=== PATIENT | male | born 1960 | race Caucasian/White ===

== ENCOUNTER 2017-03-18 12:14 | Inpatient (IN) | payer OTHER ==
[~2017-03-18] VITALS: Ht 175.3 cm; Wt 70.4 kg
[2017-03-18] VITALS (9 sets, daily range): BP systolic 127–164; BP diastolic 69–100
[2017-03-18 12:47] LABS: BASOPHILS # (AUTO) 0.1 10^3/uL (0.0-0.1); BASOPHILS % (AUTO) 1 % (0-10); EOSINOPHILS # (AUTO) 0.5 10^3/uL (0.0-0.3); EOSINOPHILS % (AUTO) 6 % (0-10); LYMPHOCYTES # (AUTO) 1.4 X 10^3 (1.0-4.0); LYMPHOCYTES % (AUTO) 18 % (12-44); MEAN CORPUSCULAR HEMOGLOBIN 30 PG (25-34); MEAN CORPUSCULAR HGB CONC 34 G/DL (32-36); MEAN CORPUSCULAR VOLUME 88 FL (80-99); MEAN PLATELET VOLUME 10.9 FL (7.4-10.4); MONOCYTES # (AUTO) 0.6 X 10^3 (0.0-1.0); MONOCYTES % (AUTO) 8 % (0-12); NEUTROPHILS # (AUTO) 5.3 X 10^3 (1.8-7.8); NEUTROPHILS % (AUTO) 68 % (42-75); PLATELET COUNT 253 10^3/uL (130-400); RED BLOOD COUNT 4.81 10^6/uL (4.35-5.85); RED CELL DISTRIBUTION WIDTH 13.1 % (10.0-14.5); WHITE BLOOD COUNT 7.8 10^3/uL (4.3-11.0)
--- NOTE | 2017-03-18 12:49 | Diagnostic Imaging Report ---
Portable upright radiograph of the chest. INDICATION: Chest pain. FINDINGS: The lungs are hyperinflated. There are prominent interstitial markings. The heart size is normal. No effusion or pneumothorax. Mediastinum and clarissa appear unremarkable. IMPRESSION: COPD. No focal infiltrate. Dictated by: Dictated on workstation # [id number]
[2017-03-18 13:05] LABS: ALANINE AMINOTRANSFERASE 8 U/L (0-55); ANION GAP 8 MMOL/L (5-14); ASPARTATE AMINO TRANSFERASE 18 U/L (5-34); BILIRUBIN,TOTAL 0.3 MG/DL (0.1-1.0); BLOOD UREA NITROGEN 14 MG/DL (7-18); BUN/CREATININE RATIO 12; CALCIUM 9.1 MG/DL (8.5-10.1); CARBON DIOXIDE 25 MMOL/L (21-32); CHLORIDE 107 MMOL/L (98-107); CREATININE SERUM 1.21 MG/DL (0.60-1.30); GFR ESTIMATED > 60; GLUCOSE 94 MG/DL (70-105); POTASSIUM 4.1 MMOL/L (3.6-5.0); SODIUM 140 MMOL/L (135-145); TOTAL PROTEIN 7.5 G/DL (6.4-8.2)
[2017-03-18 13:12] LABS: TROPONIN I 1.02 NG/ML (<0.30)
[2017-03-18] MEDS ORDERED: ASPIRIN 81 MG CHEW (CHILDREN'S ASA) PO ONE ×2 (13:15→13:30)
[2017-03-18] MEDS ORDERED: meTOprolol TARTRATE 25 MG (LOPRESSOR) TABLET PO ONE (13:15)
--- NOTE | 2017-03-18 13:29 | ED Chest Pain ---
General Chief Complaint: Chest Pain Stated Complaint: CHEST PAIN Nursing Triage Note: ARRIVED VIA AMB FROM DR RHOADES OFFICE. COMPLAINS OF CHEST PAIN ON AND OFF SINCE WEDNESDAY. STATES IT STARTED BACK UP AT 0200 TODAY WITH NO RELIEF. Nursing Sepsis Screen: No Definite Risk Source: patient Exam Limitations: no limitations History of Present Illness Time seen by provider: 13:15 Initial Comments The patient is a 56-year-old white male who was sent from Dr. Merino's office. He presented to the office with complaints of substernal chest pain radiating to each arm. He first had this pain on Wednesday. It had been fleeting but recurrent until early this morning. He was awakened at about 0200 hours with this pain and it has not really resolved. His risk factors are male sex, age greater than 50, hypertension, tobacco. He currently smokes about one half pack per day with a maximum daily of 1-1/2 packs. He has not had a cholesterol determination except at a work fair draw. He works for the [employer]. Timing/Duration: 4-5 days Severity/Quality: moderate, pressure Location: substernal Radiation: arms Activities at Onset: none Associated Symptoms: denies symptoms Allergies and Home Medications Allergies Coded Allergies: No Known Drug Allergies (Unverified , 03/18/17) Home Medications No Active Prescriptions or Reported Meds Review of Systems Constitutional: see HPI EENTM: No Symptoms Reported Respiratory: No Symptoms Reported Cardiovascular: See HPI, Chest Pain Gastrointestinal: No Symptoms Reported Genitourinary: No Symptoms Reported Musculoskeletal: no symptoms reported Skin: no symptoms reported Psychiatric/Neurological: No Symptoms Reported Endocrine: No Symptoms Reported Hematologic/Lymphatic: No Symptoms Reported Past Mhpoodz-Kxfrki-Jgrqat Hx Patient Social History Recent Foreign Travel: No Contact w/Someone Who Travel: No Recent Infectious Disease Expo: No Recent Hopitalizations: No Surgeries HX Surgeries: Yes (VASECTOMY) Respiratory Hx Respiratory Disorders: No Cardiovascular Hx Cardiac Disorders: No Neurological Hx Neurological Disorders: No Reproductive System Hx Reproductive Disorders: No Genitourinary Hx 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 ) Gastrointestinal Hx Gastrointestinal Disorders: No Musculoskeletal Hx Musculoskeletal Disorders: Yes (CHRONIC RIGHT HIP PAIN) HEENT HX ENT Disorders: No Cancer Hx Cancer: No Psychosocial Hx Psychiatric Problems: No Physical Exam Vital Signs Vital Sign - Last 12Hours 03/18/17 03/18/17 12:14 12:28 Temp 98.2 Pulse 61 Resp 16 B/P (MAP) 203/113 Pulse Ox 98 O2 Delivery Nasal Cannula O2 Flow Rate 2.00 Capillary Refill : Less Than 3 Seconds General Appearance: Mild Distress HEENT: Normal ENT Inspection Neck: Normal Inspection Respiratory: Chest Non Tender, Lungs Clear, Normal Breath Sounds, No Accessory Muscle Use, No Respiratory Distress Cardiovascular: Regular Rate, Rhythm, No Edema, No Gallop, No JVD, No Murmur, Normal Peripheral Pulses Gastrointestinal: Normal Bowel Sounds, No Organomegaly, No Pulsatile Mass, Non Tender Extremity: Normal Capillary Refill, Normal Inspection, Normal Range of Motion, Non Tender, No Calf Tenderness, No Pedal Edema Neurologic/Psychiatric: Alert, Oriented x3, No Motor/Sensory Deficits, Normal Mood/Affect Skin: Normal Color, Warm/Dry Lymphatic: No Adenopathy Progress/Results/Core Measures Results/Orders Lab Results Laboratory Tests Test 03/18/17 12:24 Range/Units White Blood Count 7.8 4.3-11.0 10^3/uL Red Blood Count 4.81 4.35-5.85 10^6/uL Hemoglobin 14.3 13.3-17.7 G/DL Hematocrit 42 40-54 % Mean Corpuscular Volume 88 80-99 FL Mean Corpuscular Hemoglobin 30 25-34 PG Mean Corpuscular Hemoglobin Concent 34 32-36 G/DL Red Cell Distribution Width 13.1 10.0-14.5 % Platelet Count 253 130-400 10^3/uL Mean Platelet Volume 10.9 H 7.4-10.4 FL Neutrophils (%) (Auto) 68 42-75 % Lymphocytes (%) (Auto) 18 12-44 % Monocytes (%) (Auto) 8 0-12 % Eosinophils (%) (Auto) 6 0-10 % Basophils (%) (Auto) 1 0-10 % Neutrophils # (Auto) 5.3 1.8-7.8 X 10^3 Lymphocytes # (Auto) 1.4 1.0-4.0 X 10^3 Monocytes # (Auto) 0.6 0.0-1.0 X 10^3 Eosinophils # (Auto) 0.5 H 0.0-0.3 10^3/uL Basophils # (Auto) 0.1 0.0-0.1 10^3/uL Sodium Level 140 135-145 MMOL/L Potassium Level 4.1 3.6-5.0 MMOL/L Chloride Level 107 98-107 MMOL/L Carbon Dioxide Level 25 21-32 MMOL/L Anion Gap 8 5-14 MMOL/L Blood Urea Nitrogen 14 7-18 MG/DL Creatinine 1.21 0.60-1.30 MG/DL Estimat Glomerular Filtration Rate > 60 BUN/Creatinine Ratio 12 Glucose Level 94 70-105 MG/DL Calcium Level 9.1 8.5-10.1 MG/DL Total Bilirubin 0.3 0.1-1.0 MG/DL Aspartate Amino Transf (AST/SGOT) 18 5-34 U/L Alanine Aminotransferase (ALT/SGPT) 8 0-55 U/L Alkaline Phosphatase 63 40-136 U/L Troponin I 1.02 *H <0.30 NG/ML Total Protein 7.5 6.4-8.2 G/DL Albumin 4.0 3.2-4.5 G/DL My Orders Orders - MARTIN VIDAL MD Ekg Tracing (03/18/17 12:20) O2 (03/18/17 12:20) Cbc With Automated Diff (03/18/17 12:20) Comprehensive Metabolic Panel (03/18/17 12:20) Troponin I (03/18/17 12:20) Chest 1 View, Ap/Pa Only (03/18/17 12:20) Aspirin Chewable Tablet (Baby Aspirin Ch (03/18/17 13:15) Metoprolol Tartrate (Ir) Tab (Lopressor (03/18/17 13:15) Aspirin Chewable Tablet (Baby Aspirin Ch (03/18/17 13:30) Nitroglycerin Sublingual (Nitrostat Sub (03/18/17 13:30) Vital Signs/I&O Vital Sign - Last 12Hours 03/18/17 03/18/17 12:14 12:28 Temp 98.2 Pulse 61 Resp 16 B/P (MAP) 203/113 Pulse Ox 98 O2 Delivery Nasal Cannula O2 Flow Rate 2.00 Blood Pressure Mean: 143 Departure Communication Progress Notes EKG was basically normal. The troponin returned positive at 1.02. He reported relief of pain. Discussed with EUSEBIO Calhoun who is cardiology call for the day. He recommended aspirin and beta blockers which had already been done. In addition he wanted me to give 300 mg of Plavix and therapeutic Lovenox. He anticipated angiography later today. Impression Impression: Primary Impression: myocardial infarction Disposition: ADMITTED INPATIENT Condition: Stable/Unchanged Decision to Admit Reason: Admit from ER (General) Decision to Admit/Date: Mar 18, 2017 Time/Decision to Admit Time: 13:29 Departure-Patient Inst. Referrals: MARCELLA MERINO DO (PCP/Family) Primary Care Physician Scripts No Active Prescriptions or Reported Meds MARTIN VIDAL MD Mar 18, 2017 13:29
[2017-03-18] MEDS ORDERED: NITROGLYCERIN SUBLINGUAL 0.4 MG TAB (NITROSTAT) SL ONE (13:30)
[2017-03-18] MEDS ORDERED: ENOXAPARIN 80 MG/0.8 ML (LOVENOX) SYR SC ONE (13:45)
[2017-03-18] MEDS ORDERED: CLOPIDOGREL 300 MG (PLAVIX) TABLET PO ONE ×2 (13:45→18:38)
[2017-03-18] MEDS ORDERED: CATHETER FLUSH 10 ML SYR IV PRN (14:45)
[2017-03-18] MEDS ORDERED: NITROGLYCERIN SUBLINGUAL 0.4 MG TAB (NITROSTAT) SL PRN (14:45)
[2017-03-18] MEDS ORDERED: MIDAZOLAM 5 MG/5 ML (VERSED) VIAL ONE (17:11)
[2017-03-18] MEDS ORDERED: fentaNYL INJECTION 100 MCG/2 ML AMP ONE (17:12)
[2017-03-18] MEDS ORDERED: diphenhydrAMINE 50 MG/ML INJ (BENADRYL) ONE (17:12)
[2017-03-18] MEDS ORDERED: NS IV 1000 ML 1,000 ML ONE (17:12)
[2017-03-18] MEDS ORDERED: HEParin (CATH LAB) 2,000 ML IV ONE (17:12)
[2017-03-18] MEDS ORDERED: LIDOCAINE 1% INJ 20 ML (XYLOCAINE) VIAL ONE (17:12)
--- NOTE | 2017-03-18 17:15 | History & Physicial ---
History of Present Illness History of Present Illness Reason for visit/HPI complaint chest pain. Patient came to the office today complaining of chest pain that started last Wednesday. Last night at 2 a.m. patient had chest pain that went down both arms more on the left and felt like a knife in his chest. Patient has a history of being a smoker. Patient transferred to emergency room and troponin elevated Date of Admission Mar 18, 2017 at 13:37 I consulted on this patient on 03/18/17 17:12 Attending Physician Jose M Merino DO Admitting Physician Jose M Merino DO Consult Allergies and Home Medications Allergies Coded Allergies: No Known Drug Allergies (Unverified , 03/18/17) Home Medications No Active Prescriptions or Reported Meds Past Ogyxksn-Nwibbo-Acfsxo Hx Patient Social History Marrital Status: Employed/Student: employed Alcohol Use: Denies Use Recreational Drug Use: No Smoking Status: Current Everyday Smoker Physical Abuse Screen: No Sexual Abuse: No Recent Foreign Travel: No Contact w/other who traveled: No Recent Hopitalizations: No Recent Infectious Disease Expo: No Seasonal Allergies Seasonal Allergies: No Surgeries HX Surgeries: Yes (VASECTOMY) Respiratory Hx Respiratory Disorders: No Cardiovascular Hx Cardiovascular Disorders: No Neurological Hx Neurological Disorders: No Reproductive System Hx Reproductive Disorders: No Genitourinary Hx 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 ) Gastrointestinal Hx Gastrointestinal Disorders: No Musculoskeletal Hx Musculoskeletal Disorders: Yes (CHRONIC RIGHT HIP PAIN) HEENT HX ENT Disorders: No Cancer Hx Cancer: No Psychosocial Hx Psychiatric Problems: No EENTM: no symptoms reported Respiratory: other (COPD) Cardiovascular: chest pain, other (pain radiating down both arms) Gastrointestinal: no symptoms reported Genitourinary: no symptoms reported Physical Exam Vital Signs Vital Sign - Last 12Hours 03/18/17 03/18/17 12:14 12:28 Temp 98.2 Pulse 61 Resp 16 B/P (MAP) 203/113 Pulse Ox 98 O2 Delivery Nasal Cannula O2 Flow Rate 2.00 Capillary Refill : Less Than 3 Seconds General Appearance: WD/WN, Thin Eyes: Bilateral Eye Normal Inspection HEENT: Normal ENT Inspection Neck: Full Range of Motion, Normal Inspection Respiratory: Chest Non Tender, Lungs Clear, No Accessory Muscle Use, No Respiratory Distress, Decreased Breath Sounds Cardiovascular: Regular Rate, Rhythm, No Murmur Gastrointestinal: Non Tender, Soft Assessment/Plan Assessment and Plan acute myocardial infarction. Chest pain Tobacco usage Problems: Clinical Quality Measures AMI/AHF: ASA po Prior to arrival: No DVT/VTE Risk/Contraindication: Risk Factor Score Per Nursin RFS Level Per Nursing on Admit: 4+=Very High JOSE M MERINO DO Mar 18, 2017 17:15
--- NOTE | 2017-03-18 17:33 | Consultation-Cardiology ---
HPI-Cardiology Cardiology Consultation: Date of Consultation 03/18/17 Date of Admission Attending Physician Jose M Perez DO Admitting Physician Jose M Perez DO Consulting Physician EUSEBIO BECK MD, FACP, FACC, FSCAI, CCDS HPI: Chief Complaint: Chest discomfort 56 yo man with 3 days of intermittent chest discomfort. Longest episode started this morning at 2 am and waxed and waned but not resolved. Is midsternal burning , mild to mod, sometimes radiating to L shoulder, sometimes associated with shortness of breath, without any aggravating or relieving factors. Has chronic mild to mod exertional shortness of breath. Denies palp or syncope. Denies leg swelling Review of Systems-Cardiology Review of Systems Constitutional: No lightheadedness, No malaise, No weight loss, No weight gain Eyes: No vision change Ears/Nose/Throat: No ear discharge, No nasal drainage, No recent hearing loss Respiratory: As described under HPI Cardiovascular: As described under HPI Gastrointestinal: No constipation, No diarrhea, No nausea Genitourinary: No dysuria, No hematuria, No urine frequency changes Musculoskeletal: No back pain, No joint pain Skin: No rash, No ulcerations Psychiatric/Neurological: No focal weakness, No seizure, No syncope Hematologic: No bleeding abnormalities IVW-Ttnlws-Zqghnp Hx Patient Social History Marrital Status: Employed/Student: employed Alcohol Use: Denies Use Recreational Drug Use: No Smoking Status: Current Everyday Smoker Recent Foreign Travel: No Recent Infectious Disease Expo: No Physical Abuse Screen: No Sexual Abuse: No Past Medical History PMH As described under Assessment. Family Medical History Family Medical History: He does not report fam h/o early CAD Allergies and Home Medications Allergies Coded Allergies: No Known Drug Allergies (Unverified , 03/18/17) Home Medications No Active Prescriptions or Reported Meds Physical Exam-Cardiology Physical Exam Vital Signs/I&O Vital Sign - Last 12Hours 03/18/17 03/18/17 03/18/17 03/18/17 12:14 12:28 14:13 14:20 Temp 98.2 97.2 Pulse 61 64 52 Resp 16 18 18 B/P (MAP) 203/113 163/100 Pulse Ox 98 96 10 O2 Delivery Nasal Cannula Nasal Cannula O2 Flow Rate 2.00 2.00 2.00 4/2003/18/17 03/18/17 03/18/17 14:33 14:40 15:00 16:00 Pulse 51 56 52 Resp 14 14 B/P (MAP) 164/86 151/95 Pulse Ox 100 96 99 O2 Delivery Nasal Cannula Nasal Cannula O2 Flow Rate 2.00 2.00 2.00 03/18/17 16:08 Pulse Ox 99 O2 Delivery Nasal Cannula O2 Flow Rate 2.00 Capillary Refill : Less Than 3 Seconds Constitutional: AAO x 3, well-developed, well-nourished HEENT: PERRL, EOMI, hearing is well preserved, No xanthelasmas are seen Neck: No carotid bruit, carotid pulses are 2 + bilaterally, with good upstrokes Respiratory: No accessory muscle use, lungs clear to percussion, lungs clear to auscultation Cardiovascular: regular rate-rhythm, S1 and S2, systolic murmur (faint TRUONG at card base) Gastrointestinal: No tender, soft, No guarding, No rebound, audible bowel sounds Extremities: No clubbing, No cyanosis, No significant edema Neurologic/Psychiatric: grossly intact, power is 5/5 both on sides Skin: No rash on exposed areas, No ulcerations on exposed areas Data Review Labs Laboratory Tests 03/18/17 12:24: White Blood Count 7.8, Red Blood Count 4.81, Hemoglobin 14.3, Hematocrit 42, Mean Corpuscular Volume 88, Mean Corpuscular Hemoglobin 30, Mean Corpuscular Hemoglobin Concent 34, Red Cell Distribution Width 13.1, Platelet Count 253, Mean Platelet Volume 10.9H, Neutrophils (%) (Auto) 68, Lymphocytes (%) (Auto) 18 , Monocytes (%) (Auto) 8, Eosinophils (%) (Auto) 6, Basophils (%) (Auto) 1, Neutrophils # (Auto) 5.3, Lymphocytes # (Auto) 1.4, Monocytes # (Auto) 0.6, Eosinophils # (Auto) 0.5H, Basophils # (Auto) 0.1, Sodium Level 140, Potassium Level 4.1, Chloride Level 107, Carbon Dioxide Level 25, Anion Gap 8, Blood Urea Nitrogen 14, Creatinine 1.21, Estimat Glomerular Filtration Rate > 60, BUN/ Creatinine Ratio 12, Glucose Level 94, Calcium Level 9.1, Total Bilirubin 0.3, Aspartate Amino Transf (AST/SGOT) 18, Alanine Aminotransferase (ALT/SGPT) 8, Alkaline Phosphatase 63, Troponin I 1.02*H, Total Protein 7.5, Albumin 4.0 Laboratory Tests 03/18/17 12:24 A/P-Cardiology Assessment/Admission Diagnosis Ac NSTEMI Chronic tobacco use Hypertension Reports only one functional kidney. Does not report CKD, but has been told on previous work up that has only one kidney, according to him Discussion and Recomendations * Because of continuing symptoms post NSTEMI, we recommend card cath * The procedure, risks, benefits, potential complications, and alternatives of cath and possible PCI were discussed in detail and questions. Was informed that the risk of contrast nephropathy may be higher for him, given vague history of kidney issues (report only one kidney present, but doesn't why the other kidney is missing) * He understands all of the issues and provides informed consent Clinical Quality Measures AMI/AHF: ASA po Prior to arrival: No DVT/VTE Risk/Contraindication: Risk Factor Score Per Nursin RFS Level Per Nursing on Admit: 4+=Very High EUSEBIO BECK MD FACP FAC CCDS Mar 18, 2017 17:33
[2017-03-18] MEDS ORDERED: HEParin 1000 UNIT/ML (10ML VIAL) FOR BOLUS ONE (18:12)
[2017-03-18] MEDS ORDERED: EPTIFIBATIDE BOLUS 20 ML IV ONE (18:12)
[2017-03-18] MEDS ORDERED: NITROGLYCERIN DRIP 25 MG/D5W 250 ML IV ONE (18:14)
--- NOTE | 2017-03-18 19:18 | Cardiac Procedure Note-CS/ASA ---
Pre-Procedure Note Pre-Op Procedure Note H&P Reviewed The H&P was reviewed, patient examined and no changes noted. Date H&P Reviewed: Mar 18, 2017 Time H&P Reviewed: 17:45 Conscious Sedation Pre-Proced Time Reviewed: 17:45 ASA Class: 3 Airway Mallampati Classification: (nenana appropriate class) I. II. III, IV Lungs Heart ASA score ASA 1: a normal healthy patient ASA 2: a patient with a mild systemic disease (mid diabetes, controlled hypertension, obesity ASA 3: a patient with a severe systemic disease that limits activity (angina , COPD, prior Myocardial infarction) ASA 4: a patient with an incapacitating disease that is a constant threat to life (CHF, renal failure) ASA 5: a moribund patient not expected to survive 24 hrs. (ruptured aneurysm) ASA 6: a declared brain patient whose organs are being harvested. For emergent operations, add the letter E after the classification Grade 2 Sedation Plan: Analgesia, Amnesia, Plan communicated to team members, Discussed options with patient/fam, Discussed risks with patient/fam Note The patient is an appropriate candidate to undergo the planned procedure, sedation, and anesthesia. The patient immediately re-assessed prior to indication. EUSEBIO BECK MD FACP FAC CCDS Mar 18, 2017 19:18
[2017-03-18] MEDS ORDERED: ACETAMINOPHEN 325 MG TABLET/CAPLET (TYLENOL) PO PRN (19:30)
[2017-03-18] MEDS ORDERED: PATIENT MAY USE OWN MEDS, ALL PO SCH (19:30)
[2017-03-18] MEDS ORDERED: fentaNYL INJECTION 100 MCG/2 ML AMP IVP ONE (21:00)
[2017-03-18] MEDS ORDERED: ATORVASTATIN 40 MG (LIPITOR) TABLET PO SCH (21:00)
[2017-03-18] MEDS ORDERED: ATROPINE INJ 0.4 MG/ML SDV ONE (21:10)
[2017-03-18] MEDS: CATHETER FLUSH 10 ML SYR IV SCH (22:30)
[2017-03-19] VITALS (10 sets, daily range): BP systolic 107–149; BP diastolic 54–88
[2017-03-19] MEDS: NS IV 1000 ML 1,000 ML IV SCH ×2 (00:04→05:34)
--- NOTE | 2017-03-19 00:08 | CARDIAC CATHETERIZATION ---
DATE OF SERVICE: 03/18/2017 The patient is 56-year-old man who was admitted with acute non-ST elevation myocardial infarction. Due to continuing symptoms, urgent cardiac catheterization was carried out after having obtained an informed consent. PROCEDURE: He was brought to the cardiac catheterization laboratory in a fasting state. The right groin was prepared and draped in the usual sterile fashion. The 1% lidocaine was used for local anesthesia. Modified Seldinger technique was to advance a 6-Argentine sheath into the right femoral artery. Angiography of the right femoral artery was performed through the sheath. Subsequently, we used the 6-Argentine JL4 catheter for left coronary angiography and 6-Argentine JR4 catheter for right coronary angiography. We used 6-Argentine pigtail catheter for left heart catheterization and left ventricular angiography. The pigtail catheter was then pulled back to the ascending aorta and was then removed. PERCUTANEOUS INTERVENTION TO THE RIGHT CORONARY ARTERY: Following completion of the diagnostic procedure, we proceeded with percutaneous intervention to the right coronary artery, which was exhibiting up to 99% stenosis in its midportion. The distal flow in the right coronary artery prior to coronary intervention was TIMI1 flow. We gave 5000 units of intravenous heparin. We gave a double bolus of Integrilin. We used 6-Fench JR4 guide catheter with side holes to engage the right coronary artery. We advanced a ChoICE Floppy wire across the lesions in the mid right coronary artery and the tip was placed in the distal vessel. We carried out balloon angioplasty, first with Emerge 1.5 x 20 mm balloon and then Emerge 2.0 x 30 mm balloon. This improved the stenosis from 99% to approximately 78%. This restored normal antegrade flow. We then proceeded with stenting of the right coronary artery. We used a Resolute 2.25 x 30 mm stent. This is carefully positioned to cover the entire lesion. The stent was deployed at 10 atmospheres. The balloon was then collapsed and pulled back into the proximal two-third of the stent and reinflated at 16 atmospheres. The balloon was then removed. Subsequent angiography revealed 0% residual stenosis at the previous site of up to 99% stenosis. Antegrade flow was normal. Angioplasty equipment was removed. Sheath was sutured in place to be removed later at the floor. The patient tolerated the procedure well. HEMODYNAMICS: Left ventricular end-diastolic pressure was 18 mmHg. There was no significant pressure gradient on pullback across the aortic valve. Ascending aortic pressure was 164/89 with a mean of 113 mmHg. LEFT VENTRICULAR ANGIOGRAPHY: Left ventricular angiography was carried out in the right anterior oblique projection only. Left ventricular ejection fraction is approximately 60-65%. No distinct regional wall motion abnormalities seen. There does not appear to be significant mitral regurgitation. CORONARY ANGIOGRAPHY: Left main coronary artery is free of significant disease. Left anterior descending artery has 50% proximal stenosis. The mid and distal left anterior descending artery has multiple stenoses of up to approximately 50%. The first septal manager cable has 90% ostial stenosis. This is a small caliber vessel. The left circumflex artery has 60% stenosis in its midportion following the origin of the first obtuse marginal branch. The right coronary artery is dominant, but of a relatively small caliber and was exhibiting up to 99% stenosis in its midportion. To this, successful balloon angioplasty followed by stenting is carried out. Following deployment of Resolute 2.25 x 30 mm stent, there is no significant visible stenosis and the flow has improved from TIMI1 to TIMI3. CONCLUSIONS: 1. Coronary artery disease as detailed above. The culprit lesion was up to 99% stenosis in the mid right coronary artery to which successful stenting was carried out with a Resolute 2.25 x 30 mm stent, which reduced the stenosis to 0% residual. Elsewhere, there is moderate diffuse coronary artery disease. 2. Normal global left ventricular systolic function with an ejection fraction of 60 to 65%. 3. No significant mitral regurgitation. 4. Elevated left ventricular end diastolic pressure. DISCUSSION AND RECOMMENDATIONS: He has been advised to quit smoking immediately and completely. Aspirin and Plavix and beta blockers and statins are being added to the regimen. He remains hospitalized for observation following this procedure. Job ID: [id number] DocumentID: [id number] Dictated Date: 03/18/2017 19:02:26 Bow Tacker Date: 03/19/2017 00:07:40 Dictated By: EUSEBIO BECK MD, MA, FACP, FACC,
[2017-03-19 03:46] LABS: BASOPHILS # (AUTO) 0.1 10^3/uL (0.0-0.1); BASOPHILS % (AUTO) 1 % (0-10); EOSINOPHILS # (AUTO) 0.3 10^3/uL (0.0-0.3); EOSINOPHILS % (AUTO) 5 % (0-10); LYMPHOCYTES # (AUTO) 1.3 X 10^3 (1.0-4.0); LYMPHOCYTES % (AUTO) 19 % (12-44); MEAN CORPUSCULAR HEMOGLOBIN 30 PG (25-34); MEAN CORPUSCULAR HGB CONC 33 G/DL (32-36); MEAN CORPUSCULAR VOLUME 90 FL (80-99); MONOCYTES # (AUTO) 0.6 X 10^3 (0.0-1.0); MONOCYTES % (AUTO) 9 % (0-12); NEUTROPHILS # (AUTO) 4.8 X 10^3 (1.8-7.8); NEUTROPHILS % (AUTO) 67 % (42-75); PLATELET COUNT 188 10^3/uL (130-400); RED BLOOD COUNT 4.25 10^6/uL (4.35-5.85); RED CELL DISTRIBUTION WIDTH 13.1 % (10.0-14.5); WHITE BLOOD COUNT 7.1 10^3/uL (4.3-11.0)
[2017-03-19 04:18] LABS: ANION GAP 9 MMOL/L (5-14); BLOOD UREA NITROGEN 14 MG/DL (7-18); BUN/CREATININE RATIO 14; CALCIUM 8.4 MG/DL (8.5-10.1); CARBON DIOXIDE 22 MMOL/L (21-32); CHLORIDE 109 MMOL/L (98-107); CHOLESTEROL 140 MG/DL (< 200); CREATININE SERUM 0.97 MG/DL (0.60-1.30); DIRECT LDL 83 MG/DL (1-129); GFR ESTIMATED > 60; GLUCOSE 103 MG/DL (70-105); MAGNESIUM 1.8 MG/DL (1.8-2.4); PHOSPHORUS 3.2 MG/DL (2.3-4.7); POTASSIUM 3.9 MMOL/L (3.6-5.0); SODIUM 140 MMOL/L (135-145); TRIGLYCERIDES 113 MG/DL (<150); VLDL CHOLESTEROL 23 MG/DL (5-40)
[2017-03-19 04:38] LABS: THYROID STIMULATING HORMONE 1.16 UIU/ML (0.35-4.94)
[2017-03-19] MEDS: CATHETER FLUSH 10 ML SYR IV SCH (05:34)
[2017-03-19] MEDS ORDERED: POTASSIUM CL 10MEQ/50ML IVPB 50 ML IV SCH (06:00)
[2017-03-19] MEDS ORDERED: KCL 20 MEQ TAB (K-DUR) PO SCH (06:00)
[2017-03-19] MEDS ORDERED: MAGNESIUM 1 GM/100 ML IVPB 100 ML IV SCH (06:00)
--- NOTE | 2017-03-19 07:04 | Progress Note (SOAP) ---
Subjective Subjective/Events-last exam patient feeling better today. Patient has no chest pain. Acute NST [place]. Hypertension. Tobacco use. Objective Exam Vital Signs Date Time Temp Pulse Resp B/P (MAP) Pulse Ox O2 Delivery O2 Flow Rate FiO2 03/19/17 06:01 61 10 136/73 98 Nasal Cannula 2.00 03/19/17 05:06 57 13 129/79 99 Nasal Cannula 2.00 03/19/17 04:30 61 12 123/75 99 Nasal Cannula 2.00 03/19/17 04:00 100 2.00 03/19/17 03:30 60 15 107/57 99 Nasal Cannula 2.00 03/19/17 02:00 58 14 109/59 98 Nasal Cannula 2.00 03/19/17 01:28 72 03/19/17 01:00 77 10 122/61 100 Nasal Cannula 2.00 03/19/17 00:00 65 12 114/54 100 Nasal Cannula 2.00 03/19/17 00:00 100 2.00 03/19/17 00:00 99.1 70 18 122/69 98 Nasal Cannula 2.00 03/18/17 23:00 70 11 127/72 100 Nasal Cannula 2.00 03/18/17 22:31 65 03/18/17 22:00 67 13 137/69 100 Nasal Cannula 2.00 03/18/17 21:00 62 15 147/84 100 Nasal Cannula 2.00 03/18/17 20:59 100 2.00 03/18/17 20:27 98.2 63 18 146/87 100 Nasal Cannula 2.00 03/18/17 20:00 100 2.00 03/18/17 19:30 68 14 143/90 99 Nasal Cannula 2.00 03/18/17 17:00 52 16 164/93 99 Nasal Cannula 2.00 03/18/17 16:08 99 Nasal Cannula 2.00 03/18/17 16:00 52 14 151/95 99 Nasal Cannula 2.00 03/18/17 15:00 56 14 164/86 96 Nasal Cannula 2.00 03/18/17 14:40 100 2.00 03/18/17 14:33 51 03/18/17 14:20 97.2 52 18 163/100 10 Nasal Cannula 2.00 03/18/17 14:13 64 18 96 2.00 03/18/17 12:28 Nasal Cannula 2.00 03/18/17 12:14 98.2 61 16 203/113 98 I & O 03/19/17 07:00 Intake Total 200 ml Output Total 1050 ml Balance -850 ml Capillary Refill : Less Than 3 Seconds General Appearance: No Apparent Distress, WD/WN HEENT: Normal ENT Inspection Neck: Full Range of Motion, Normal Inspection Respiratory: Chest Non Tender, No Accessory Muscle Use, No Respiratory Distress , Decreased Breath Sounds Cardiovascular: No Murmur Gastrointestinal: non tender, soft Results Lab Laboratory Tests 03/18/17 12:24 03/19/17 03:10 Laboratory Tests 03/18/17 12:24: White Blood Count 7.8, Red Blood Count 4.81, Hemoglobin 14.3, Hematocrit 42, Mean Corpuscular Volume 88, Mean Corpuscular Hemoglobin 30, Mean Corpuscular Hemoglobin Concent 34, Red Cell Distribution Width 13.1, Platelet Count 253, Mean Platelet Volume 10.9H, Neutrophils (%) (Auto) 68, Lymphocytes (%) (Auto) 18 , Monocytes (%) (Auto) 8, Eosinophils (%) (Auto) 6, Basophils (%) (Auto) 1, Neutrophils # (Auto) 5.3, Lymphocytes # (Auto) 1.4, Monocytes # (Auto) 0.6, Eosinophils # (Auto) 0.5H, Basophils # (Auto) 0.1, Sodium Level 140, Potassium Level 4.1, Chloride Level 107, Carbon Dioxide Level 25, Anion Gap 8, Blood Urea Nitrogen 14, Creatinine 1.21, Estimat Glomerular Filtration Rate > 60, BUN/ Creatinine Ratio 12, Glucose Level 94, Calcium Level 9.1, Total Bilirubin 0.3, Aspartate Amino Transf (AST/SGOT) 18, Alanine Aminotransferase (ALT/SGPT) 8, Alkaline Phosphatase 63, Troponin I 1.02*H, Total Protein 7.5, Albumin 4.0 03/18/17 19:53: Activated Partial Thromboplast Time 135*H 03/19/17 03:10: White Blood Count 7.1, Red Blood Count 4.25L, Hemoglobin 12.6L, Hematocrit 38L, Mean Corpuscular Volume 90, Mean Corpuscular Hemoglobin 30, Mean Corpuscular Hemoglobin Concent 33, Red Cell Distribution Width 13.1, Platelet Count 188, Mean Platelet Volume 11.0H, Neutrophils (%) (Auto) 67, Lymphocytes (%) (Auto) 19 , Monocytes (%) (Auto) 9, Eosinophils (%) (Auto) 5, Basophils (%) (Auto) 1, Neutrophils # (Auto) 4.8, Lymphocytes # (Auto) 1.3, Monocytes # (Auto) 0.6, Eosinophils # (Auto) 0.3, Basophils # (Auto) 0.1, Sodium Level 140, Potassium Level 3.9, Chloride Level 109H, Carbon Dioxide Level 22, Anion Gap 9, Blood Urea Nitrogen 14, Creatinine 0.97, Estimat Glomerular Filtration Rate > 60, BUN/ Creatinine Ratio 14, Glucose Level 103, Calcium Level 8.4L, Phosphorus Level 3.2 , Magnesium Level 1.8, Triglycerides Level 113, Cholesterol Level 140, LDL Cholesterol Direct 83, VLDL Cholesterol 23, HDL Cholesterol 40, Thyroid Stimulating Hormone (TSH) 1.16 Assessment/Plan Assessment/Plan Assess & Plan/Chief Complaint patient feels better and wants to go home acute NST [place]. Tobaccoism area Hypertension. Clinical Quality Measures AMI/AHF: ASA po Prior to arrival: No DVT/VTE Risk/Contraindication: Risk Factor Score Per Nursin RFS Level Per Nursing on Admit: 4+=Very High MARCELLA MERINO DO Mar 19, 2017 07:04
--- NOTE | 2017-03-19 07:46 | Diagnostic Imaging Report ---
Portable upright radiograph of the chest. INDICATION: Dyspnea. FINDINGS: The lungs are hyperinflated. There is prominent interstitial markings similar to 03/18/2017 and has chronic appearance. No effusion or pneumothorax. The heart size is normal. IMPRESSION: COPD. Dictated by: Dictated on workstation # [id number]
--- NOTE | 2017-03-19 08:49 | Progress Note-Cardiology ---
Cardiology SOAP Progress Note Subjective: Sitting up in bed. Spouse at the bedside. No c/o CP, SOB, palpitations, syncope or near syncope. No c/o groin pain. Objective: I&O/Vital Signs Vital Sign - Last 12Hours 03/18/17 03/18/17 03/19/17 03/19/17 22:31 23:00 00:00 00:00 Temp 99.1 Pulse 65 70 70 Resp 11 18 B/P (MAP) 127/72 122/69 Pulse Ox 100 98 100 O2 Delivery Nasal Cannula Nasal Cannula O2 Flow Rate 2.00 2.00 2.00 03/19/17 03/19/17 03/19/17 03/19/17 00:00 01:00 01:28 02:00 Pulse 65 77 72 58 Resp 12 10 14 B/P (MAP) 114/54 122/61 109/59 Pulse Ox 100 100 98 O2 Delivery Nasal Cannula Nasal Cannula Nasal Cannula O2 Flow Rate 2.00 2.00 2.00 03/19/17 03/19/17 03/19/17 03/19/17 03:30 04:00 04:30 05:06 Pulse 60 61 57 Resp 15 12 13 B/P (MAP) 107/57 123/75 129/79 Pulse Ox 99 100 99 99 O2 Delivery Nasal Cannula Nasal Cannula Nasal Cannula O2 Flow Rate 2.00 2.00 2.00 2.00 03/19/17 03/19/17 03/19/17 03/19/17 06:01 07:00 08:00 08:00 Temp 99.1 Pulse 61 68 64 Resp 10 14 B/P (MAP) 136/73 135/80 Pulse Ox 98 98 98 O2 Delivery Nasal Cannula Room Air O2 Flow Rate 2.00 Intake and Output 03/19/17 00:00 Intake Total 0 ml Output Total 650 ml Balance -650 ml Weight (Pounds): 155 Weight (Ounces): 3.0 Weight (Calculated Kilograms): [id number] Side: right Groin site without hematoma: Yes Condition: DP/PT pulses palpable, extremity w/d/p Bruising: mild bruising Constitutional: AAO x 3, well-developed, well-nourished Respiratory: No accessory muscle use, lungs clear to percussion, lungs clear to auscultation Cardiovascular: regular rate-rhythm, S1 and S2, systolic murmur (faint TRUONG at card base) Gastrointestional: No tender, soft, No guarding, No rebound, audible bowel sounds Extremities: No clubbing, No cyanosis, No significant edema Neurologic/Psychiatric: grossly intact, power is 5/5 both on sides Skin: No rash on exposed areas, No ulcerations on exposed areas Results/Procedures: Labs Laboratory Tests 03/18/17 12:24: White Blood Count 7.8, Red Blood Count 4.81, Hemoglobin 14.3, Hematocrit 42, Mean Corpuscular Volume 88, Mean Corpuscular Hemoglobin 30, Mean Corpuscular Hemoglobin Concent 34, Red Cell Distribution Width 13.1, Platelet Count 253, Mean Platelet Volume 10.9H, Neutrophils (%) (Auto) 68, Lymphocytes (%) (Auto) 18 , Monocytes (%) (Auto) 8, Eosinophils (%) (Auto) 6, Basophils (%) (Auto) 1, Neutrophils # (Auto) 5.3, Lymphocytes # (Auto) 1.4, Monocytes # (Auto) 0.6, Eosinophils # (Auto) 0.5H, Basophils # (Auto) 0.1, Sodium Level 140, Potassium Level 4.1, Chloride Level 107, Carbon Dioxide Level 25, Anion Gap 8, Blood Urea Nitrogen 14, Creatinine 1.21, Estimat Glomerular Filtration Rate > 60, BUN/ Creatinine Ratio 12, Glucose Level 94, Calcium Level 9.1, Total Bilirubin 0.3, Aspartate Amino Transf (AST/SGOT) 18, Alanine Aminotransferase (ALT/SGPT) 8, Alkaline Phosphatase 63, Troponin I 1.02*H, Total Protein 7.5, Albumin 4.0 03/18/17 19:53: Activated Partial Thromboplast Time 135*H 03/19/17 03:10: White Blood Count 7.1, Red Blood Count 4.25L, Hemoglobin 12.6L, Hematocrit 38L, Mean Corpuscular Volume 90, Mean Corpuscular Hemoglobin 30, Mean Corpuscular Hemoglobin Concent 33, Red Cell Distribution Width 13.1, Platelet Count 188, Mean Platelet Volume 11.0H, Neutrophils (%) (Auto) 67, Lymphocytes (%) (Auto) 19 , Monocytes (%) (Auto) 9, Eosinophils (%) (Auto) 5, Basophils (%) (Auto) 1, Neutrophils # (Auto) 4.8, Lymphocytes # (Auto) 1.3, Monocytes # (Auto) 0.6, Eosinophils # (Auto) 0.3, Basophils # (Auto) 0.1, Sodium Level 140, Potassium Level 3.9, Chloride Level 109H, Carbon Dioxide Level 22, Anion Gap 9, Blood Urea Nitrogen 14, Creatinine 0.97, Estimat Glomerular Filtration Rate > 60, BUN/ Creatinine Ratio 14, Glucose Level 103, Calcium Level 8.4L, Phosphorus Level 3.2 , Magnesium Level 1.8, Triglycerides Level 113, Cholesterol Level 140, LDL Cholesterol Direct 83, VLDL Cholesterol 23, HDL Cholesterol 40, Thyroid Stimulating Hormone (TSH) 1.16 Procedures S/P cardiac cath with successful intervention. Please refer to Dr. Pompa's cardiac cath report of 03-18-17 A/P: Assessment: Ac NSTEMI Coronary artery disease as detailed above. The culprit lesion was up to 99% stenosis in the mid right coronary artery to which successful stenting was carried out with a Resolute 2.25 x 30 mm stent, which reduced the stenosis to 0 % residual. Elsewhere, there is moderate diffuse coronary artery disease. Normal global left ventricular systolic function with an ejection fraction of 60 to 65%. No significant mitral regurgitation. Elevated left ventricular end diastolic pressure. Per cardiac cath of 03-18-17 Chronic tobacco use - cessation advised Hypertension Reports only one functional kidney. Does not report CKD, but has been told on previous work up that has only one kidney, according to him Plan: * S/P cardiac cath with successful intervention on 03-18-17 * Continue current medication regimen including ASA, Plavix, statin, and BB * Discussed importance of compliance with medications * Immediate and complete smoking cessation advised * OK to discharge home today * Out patient f/u in a week Physician Assessment Physician Assessment Lungs: good bilat air enty Cor: reg R groin w/o hematoma or inflammation A&R * As documented in our note above * I had a detailed discussion with him and his regarding cath findings, interventions undertaken, rationale of all meds, importance of med compliance and outpatient f/u * I advised immediate and complete smoking cessation * I advised and discussed risk factor modification Clinical Quality Measures AMI/AHF: ASA po Prior to arrival: APARNA Lloyd [employer] DIRECTOR Mar 19, 2017 08:49 EUSEBIO POMPA MD FACP FAC CCDS Mar 19, 2017 10:28
[2017-03-19] MEDS ORDERED: ASPIRIN E.C. 81 MG (ECOTRIN) TAB PO SCH (09:00)
[2017-03-19] MEDS ORDERED: CLOPIDOGREL 75 MG (PLAVIX) TABLET PO SCH (09:00)
[2017-03-19] MEDS ORDERED: ASPI-983 PO (09:01)
[2017-03-19] MEDS ORDERED: METO-270 PO (09:01)
[2017-03-19] MEDS ORDERED: ATOR40TA PO (09:01)
[2017-03-19] MEDS ORDERED: CLOP75TA28 PO (09:01)
--- NOTE | 2017-03-19 09:02 | Discharge Inst-Cardiology ---
Discharge Inst-Cardiac Discharge Medications New Medications: Aspirin (Aspirin EC) 81 Mg Tablet.dr 81 MG PO DAILY, #100 TAB 5 Refills Atorvastatin Calcium (Lipitor) 40 Mg Tablet 40 MG PO HS, #30 TAB 5 Refills Clopidogrel Bisulfate (Clopidogrel) 75 Mg Tablet 75 MG PO DAILY, #30 TAB 5 Refills Metoprolol Succinate (Metoprolol Succinate) 25 Mg Tab.er.24h 25 MG PO DAILY, #30 TAB 5 Refills New, Converted or Re-Newed RX: Transmitted to Pharmacy Patient Instructions Patient Instructions: Follow up appt to see Dr. Pompa in a week APARNA LUCAS Mar 19, 2017 09:02
--- NOTE | 2017-03-22 07:25 | ECHOCARDIOGRAPHY REPORT ---
DATE OF SERVICE: 03/19/2017 DATE OF SERVICE: 03/19/2017. PROCEDURE: Echocardiogram. ORDERING PHYSICIAN: Dr. Pompa. PRIMARY CARE PHYSICIAN: Dr. Perez. CLINICAL DIAGNOSIS: Acute myocardial infarction. MEASUREMENTS: Left atrium 2.8. Aortic root 3.3. LV diameter diastolic 4.1. IVF thickness, diastolic, 0.8. LVPW thickness, diastolic, 0.9. DESCRIPTION: Two-dimensional echocardiography shows well-preserved global left ventricular systolic function. No distinct regional wall motion abnormality obtained. Aortic, mitral, and tricuspid valve leaflets show good leaflet excursion. Doppler imaging did not show any significant valvular stenosis. Trivial tricuspid regurgitation is seen. Pulmonary artery systolic pressure is estimated to be within normal limits. Mitral inflow is consistent with grade 1 diastolic dysfunction of the left ventricle. There is no evidence of any significant intracardiac shunt on this transthoracic echocardiographic study. Inferior vena cava appears to be of normal size and does exhibit inspiratory collapse. CONCLUSIONS: 1. Normal global left ventricular systolic function with ejection fraction of 50%. 2. Trivial tricuspid regurgitation. 3. No evidence of any significant valvular stenosis. 4. Mild diastolic dysfunction, left ventricle. 5. Pulmonary artery systolic pressure is estimated to be within normal limits. Job ID: [id number] DocumentID: [id number] Dictated Date: 03/21/2017 14:36:35 Manager Psychiatry Date: 03/21/2017 14:52:56 Dictated By: EUSEBIO POMPA MD, MA, FACP, FACC,
--- NOTE | 2017-03-23 07:18 | Discharge Summary ---
Diagnosis/Chief Complaint Date of Admission Mar 18, 2017 at 13:37 Date of Discharge Mar 19, 2017 at 10:40 Admission Diagnosis Admission Diagnosis acute myocardial infarction. Chest pain Tobacco usage Discharge Diagnosis coronary artery disease. Non-ST elevated AR. Essential hypertension. Nicotine dependence Reason Hospital Visit complaint chest pain. Patient came to the office today complaining of chest pain that started last Wednesday. Last night at 2 a.m. patient had chest pain that went down both arms more on the left and felt like a knife in his chest. Patient has a history of being a smoker. Patient transferred to emergency room and troponin elevated Discharge Summary Procedures cardiac catheter Consultations cardiology Discharge Physical Examination Allergies: Coded Allergies: No Known Drug Allergies (Unverified , 03/18/17) Vitals & I&Os Vital Signs Date Time Temp Pulse Resp B/P (MAP) Pulse Ox O2 Delivery O2 Flow Rate FiO2 03/19/17 10:40 03/19/17 09:00 58 10 97 Room Air 03/19/17 08:00 99.1 03/19/17 07:00 2.00 Hospital Course patient had cardiac catheter and did well Labs (last 24 hrs) Laboratory Tests 03/18/17 12:24: White Blood Count 7.8, Red Blood Count 4.81, Hemoglobin 14.3, Hematocrit 42, Mean Corpuscular Volume 88, Mean Corpuscular Hemoglobin 30, Mean Corpuscular Hemoglobin Concent 34, Red Cell Distribution Width 13.1, Platelet Count 253, Mean Platelet Volume 10.9H, Neutrophils (%) (Auto) 68, Lymphocytes (%) (Auto) 18 , Monocytes (%) (Auto) 8, Eosinophils (%) (Auto) 6, Basophils (%) (Auto) 1, Neutrophils # (Auto) 5.3, Lymphocytes # (Auto) 1.4, Monocytes # (Auto) 0.6, Eosinophils # (Auto) 0.5H, Basophils # (Auto) 0.1, Sodium Level 140, Potassium Level 4.1, Chloride Level 107, Carbon Dioxide Level 25, Anion Gap 8, Blood Urea Nitrogen 14, Creatinine 1.21, Estimat Glomerular Filtration Rate > 60, BUN/ Creatinine Ratio 12, Glucose Level 94, Calcium Level 9.1, Total Bilirubin 0.3, Aspartate Amino Transf (AST/SGOT) 18, Alanine Aminotransferase (ALT/SGPT) 8, Alkaline Phosphatase 63, Troponin I 1.02*H, Total Protein 7.5, Albumin 4.0 03/18/17 19:53: Activated Partial Thromboplast Time 135*H 03/19/17 03:10: White Blood Count 7.1, Red Blood Count 4.25L, Hemoglobin 12.6L, Hematocrit 38L, Mean Corpuscular Volume 90, Mean Corpuscular Hemoglobin 30, Mean Corpuscular Hemoglobin Concent 33, Red Cell Distribution Width 13.1, Platelet Count 188, Mean Platelet Volume 11.0H, Neutrophils (%) (Auto) 67, Lymphocytes (%) (Auto) 19 , Monocytes (%) (Auto) 9, Eosinophils (%) (Auto) 5, Basophils (%) (Auto) 1, Neutrophils # (Auto) 4.8, Lymphocytes # (Auto) 1.3, Monocytes # (Auto) 0.6, Eosinophils # (Auto) 0.3, Basophils # (Auto) 0.1, Sodium Level 140, Potassium Level 3.9, Chloride Level 109H, Carbon Dioxide Level 22, Anion Gap 9, Blood Urea Nitrogen 14, Creatinine 0.97, Estimat Glomerular Filtration Rate > 60, BUN/ Creatinine Ratio 14, Glucose Level 103, Calcium Level 8.4L, Phosphorus Level 3.2 , Magnesium Level 1.8, Triglycerides Level 113, Cholesterol Level 140, LDL Cholesterol Direct 83, VLDL Cholesterol 23, HDL Cholesterol 40, Thyroid Stimulating Hormone (TSH) 1.16 Laboratory Tests 03/18/17 12:24 03/19/17 03:10 Pending Labs Laboratory Tests 03/18/17 12:24: White Blood Count 7.8, Red Blood Count 4.81, Hemoglobin 14.3, Hematocrit 42, Mean Corpuscular Volume 88, Mean Corpuscular Hemoglobin 30, Mean Corpuscular Hemoglobin Concent 34, Red Cell Distribution Width 13.1, Platelet Count 253, Mean Platelet Volume 10.9, Neutrophils (%) (Auto) 68, Lymphocytes (%) (Auto) 18 , Monocytes (%) (Auto) 8, Eosinophils (%) (Auto) 6, Basophils (%) (Auto) 1, Neutrophils # (Auto) 5.3, Lymphocytes # (Auto) 1.4, Monocytes # (Auto) 0.6, Eosinophils # (Auto) 0.5, Basophils # (Auto) 0.1, Sodium Level 140, Potassium Level 4.1, Chloride Level 107, Carbon Dioxide Level 25, Anion Gap 8, Blood Urea Nitrogen 14, Creatinine 1.21, Estimat Glomerular Filtration Rate > 60, BUN/ Creatinine Ratio 12, Glucose Level 94, Calcium Level 9.1, Total Bilirubin 0.3, Aspartate Amino Transf (AST/SGOT) 18, Alanine Aminotransferase (ALT/SGPT) 8, Alkaline Phosphatase 63, Troponin I 1.02, Total Protein 7.5, Albumin 4.0 03/18/17 19:53: Activated Partial Thromboplast Time 135 03/19/17 03:10: White Blood Count 7.1, Red Blood Count 4.25, Hemoglobin 12.6, Hematocrit 38, Mean Corpuscular Volume 90, Mean Corpuscular Hemoglobin 30, Mean Corpuscular Hemoglobin Concent 33, Red Cell Distribution Width 13.1, Platelet Count 188, Mean Platelet Volume 11.0, Neutrophils (%) (Auto) 67, Lymphocytes (%) (Auto) 19 , Monocytes (%) (Auto) 9, Eosinophils (%) (Auto) 5, Basophils (%) (Auto) 1, Neutrophils # (Auto) 4.8, Lymphocytes # (Auto) 1.3, Monocytes # (Auto) 0.6, Eosinophils # (Auto) 0.3, Basophils # (Auto) 0.1, Sodium Level 140, Potassium Level 3.9, Chloride Level 109, Carbon Dioxide Level 22, Anion Gap 9, Blood Urea Nitrogen 14, Creatinine 0.97, Estimat Glomerular Filtration Rate > 60, BUN/ Creatinine Ratio 14, Glucose Level 103, Calcium Level 8.4, Phosphorus Level 3.2 , Magnesium Level 1.8, Triglycerides Level 113, Cholesterol Level 140, LDL Cholesterol Direct 83, VLDL Cholesterol 23, HDL Cholesterol 40, Thyroid Stimulating Hormone (TSH) 1.16 Discharge Home Medications: Active Scripts Active Aspirin EC (Aspirin) 81 Mg Tablet.dr 81 Mg PO DAILY Metoprolol Succinate 25 Mg Tab.er.24h 25 Mg PO DAILY Lipitor (Atorvastatin Calcium) 40 Mg Tablet 40 Mg PO HS Clopidogrel (Clopidogrel Bisulfate) 75 Mg Tablet 75 Mg PO DAILY Instructions to patient/family Please see electonic discharge instructions given to patient. Clinical Quality Measures AMI/AHF: ASA po Prior to arrival: No DVT/VTE Risk/Contraindication: Risk Factor Score Per Nursin RFS Level Per Nursing on Admit: 4+=Very High MARCELLA MERINO DO Mar 23, 2017 07:18
== END 2017-03-19 10:40 | disposition home or self-care (01) | DRG 247 ==
LOC: EDUNIT# 12:14 → ER 12:16 → ICU 13:37
PROVIDERS: ADMIT Internal Medicine Cardiovascular Disease; ATTEND Family Medicine
PROC: 027034Z Dilation of Coronary Artery, One Artery with Drug-eluting Intraluminal Device, Percutaneous Approach (ICD-10-PCS; principal; 2017-03-18)
PROC: B2151ZZ Fluoroscopy of Left Heart using Low Osmolar Contrast (ICD-10-PCS; 2017-03-18)
PROC: B2111ZZ Fluoroscopy of Multiple Coronary Arteries using Low Osmolar Contrast (ICD-10-PCS; 2017-03-18)
PROC: B41F1ZZ Fluoroscopy of Right Lower Extremity Arteries using Low Osmolar Contrast (ICD-10-PCS; 2017-03-18)
DX: I21.4 Non-ST elevation (NSTEMI) myocardial infarction (principal); I25.10 Atherosclerotic heart disease of native coronary artery without angina pectoris; I10 Essential (primary) hypertension; F17.210 Nicotine dependence, cigarettes, uncomplicated
CPT/HCPCS: 36415; 71010; 80048; 80053; 80061; 83735; 84100; 84443; 84484; 85025; 85730; 93005; 93306; 93458; 96372

== ENCOUNTER 2017-04-03 10:13 | Emergency (ER) | payer OTHER ==
[~2017-04-03] VITALS: Ht 175.3 cm; Wt 70.3 kg
[~2017-04-03 10:13] MED LIST: ASPI-983 PO; ATOR40TA PO; CLOP75TA28 PO; METO-270 PO
[2017-04-03] MEDS ORDERED: HYDR-757 PO (11:25)
[2017-04-03] MEDS ORDERED: AMOX500C2 PO (11:25)
--- NOTE | 2017-04-03 11:25 | ED EENT ---
History of Present Illness General Chief Complaint: Dental Problems/Pain Stated Complaint: R SIDE UPPER TOOTH PAIN Source: patient Exam Limitations: no limitations History of Present Illness Time seen by provider: 11:22 Initial Comments To ER with right sided upper dental pain for 2-3 days. He was recently here for coronary stent placement following an AR. Timing/Duration: abrupt Severity: moderate Location: mouth, dental Associated Symptoms: denies symptoms Allergies and Home Medications Allergies Coded Allergies: No Known Drug Allergies (Unverified , 03/18/17) Home Medications Aspirin 81 Mg Tablet.dr, 81 MG PO DAILY, #100 Ref 5 Prescribed by: APARNA LUCAS on 03/19/17900 Atorvastatin Calcium 40 Mg Tablet, 40 MG PO HS, #30 Ref 5 Prescribed by: APARNA LUCAS on 03/19/17 09 Clopidogrel Bisulfate 75 Mg Tablet, 75 MG PO DAILY, #30 Ref 5 Prescribed by: APARNA LUCAS on 03/19/17900 Metoprolol Succinate 25 Mg Tab.er.24h, 25 MG PO DAILY, #30 Ref 5 Prescribed by: APARNA LUCAS on 03/19/17900 Review of Systems Constitutional: see HPI Eyes: No Symptoms Reported Ears: No Symptoms Reported Nose: no symptoms reported Mouth: see HPI Throat: no symptoms reported Respiratory: no symptoms reported Cardiovascular: no symptoms reported, No chest pain Musculoskeletal: no symptoms reported Skin: no symptoms reported Past Mjvubbm-Fglbrl-Eyyysi Hx Patient Social History Recent Foreign Travel: No Contact w/Someone Who Travel: No Recent Hopitalizations: No Seasonal Allergies Seasonal Allergies: No Surgeries HX Surgeries: Yes (VASECTOMY) Respiratory Hx Respiratory Disorders: No Cardiovascular Hx Cardiac Disorders: No Neurological Hx Neurological Disorders: No Reproductive System Hx Reproductive Disorders: No Genitourinary Hx 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 ) Gastrointestinal Hx Gastrointestinal Disorders: No Musculoskeletal Hx Musculoskeletal Disorders: Yes (CHRONIC RIGHT HIP PAIN) HEENT HX ENT Disorders: No Cancer Hx Cancer: No Psychosocial Hx Psychiatric Problems: No Physical Exam General Appearance: WD/WN, no apparent distress Eyes: bilateral eye EOMI, bilateral eye PERRL, bilateral eye normal inspection Ears: bilateral ear TM normal, bilateral ear auricle normal, bilateral ear canal normal Nose: normal inspection, No active bleeding Mouth/Throat: dental tenderness, No mandibular swelling, No maxillary swelling Neck: non-tender, full range of motion, No lymphadenopathy (R), No lymphadenopathy (L) Cardiovascular: regular rate, rhythm, no murmur Respiratory: normal breath sounds, no respiratory distress, no accessory muscle use Neurologic/Psychiatric: alert, normal mood/affect, oriented x 3 Skin: normal color, warm/dry Hypertensive at 193/108. Heart rate 80. Departure Impression Impression: Primary Impression: Hypertension Additional Impression: Dental caries Disposition: HOME, SELF-CARE Condition: Stable Departure-Patient Inst. Decision time for Depature: 11:24 Referrals: MARCELLA MERINO DO (PCP) Primary Care Physician Patient Instructions: Dental Pain (DC) Add. Discharge Instructions: 1. Return to ER for any concerns 2. Antibiotics and pain medication as directed 3. See your doctor next week All discharge instructions reviewed with patient and/or family. Voiced understanding. Scripts Hydrocodone/Acetaminophen (Cypress 5-325 Tablet) 1 Each Tablet 1 EACH PO Q4H Y for PAIN-MODERATE TO SEVERE, #20 TAB Prov: PAGE DAILEY APRN 04/03/17 Amoxicillin (Amoxicillin) 500 Mg Capsule 500 MG PO TID, #21 CAP Prov: PAGE DAILEY APRN 04/03/17 Images Mouth/Nose 1 - Caries, Fracture Tooth, Tenderness PAGE DAILEY APRN April 03, 2017 11:25
[2017-04-03] MEDS ORDERED: meTOprolol TARTRATE 25 MG (LOPRESSOR) TABLET PO ONE (11:30)
[2017-04-03] MEDS ORDERED: meTOprolol TARTRATE 50 MG (LOPRESSOR) TAB PO ONE (11:30)
[2017-04-03 11:38] VITALS: BP 174/108
== END 2017-04-03 11:38 | disposition home or self-care (01) ==
LOC: EDUNIT# 10:13 → ER 10:16
DX: K02.9 Dental caries, unspecified (principal); I10 Essential (primary) hypertension; I25.2 Old myocardial infarction; Q60.0 Renal agenesis, unilateral; Z79.82 Long term (current) use of aspirin; Z79.02 Long term (current) use of antithrombotics/antiplatelets; Z79.899 Other long term (current) drug therapy; Z95.5 Presence of coronary angioplasty implant and graft
CPT/HCPCS: 99282

== ENCOUNTER → 2019-06-20 | Outpatient (CLI) | payer OTHER ==
[~2019-06-20] MED LIST changes: +AMOX500C2 PO; +HYDR-4226 PO; -METO-270 PO; +METO-387 PO
--- NOTE | 2019-06-20 16:17 | Diagnostic Imaging Report ---
PROCEDURE: MRI left upper extremity without contrast. TECHNIQUE: Multiplanar, multisequence [id number] MRI of the left upper extremity was accomplished. INDICATION: Left shoulder pain. COMPARISON: There are no prior studies available for comparison. FINDINGS: On the T2 fat-saturated coronal series, there is a small 2 x 6 mm area of increased signal within the substance of the mid portion of the rotator cuff. This may represent a small partial tear. The supraspinatus muscle itself is not retracted or bunched. There is mild hypertrophy of the acromioclavicular joint. This does produce slight narrowing of the outlet for the supraspinatus muscle. The biceps tendon and the subscapularis tendon are intact. There are several sublabral cysts. These are indirect signs of a labral tear, and the labrum itself does seem to be thinned centrally. There is no sign of a joint effusion. There is no abnormal signal arising from the osseous structures to suggest bone edema or a fracture. IMPRESSION: 1. The findings do suggest a very small partial tear of the mid portion of the rotator cuff. The supraspinatus muscle is not retracted or bunched, however. 2. There is mild hypertrophy of the acromioclavicular joint. This does result in slight narrowing of the outlet for the supraspinatus muscle. 3. The labrum is torn on a degenerative basis, and there are several sublabral cysts. 4. There is no acute bony abnormality noted. Dictated by: Dictated on workstation # [id number]
== END ==
LOC: RAD 14:51
PROVIDERS: ATTEND Family Medicine
DX: S43.402A Unspecified sprain of left shoulder joint, initial encounter (principal); M25.812 Other specified joint disorders, left shoulder
CPT/HCPCS: 73221

== ENCOUNTER → 2019-09-25 | Outpatient (CLI) | payer OTHER ==
--- NOTE | 2019-09-25 13:23 | Diagnostic Imaging Report ---
INDICATION: Right hip pain. TIME OF EXAM: 12:59 p.m. FINDINGS: Two views of the right hip are obtained. Femoroacetabular alignment is normal. There are severe osteoarthritic changes involving the right hip. Complete loss of the superior and medial joint space is noted. There is significant sclerosis and subchondral cyst formation at the articular surfaces of the femoral head and acetabulum. Marginal osteophyte formation is noted. There is some mild flattening of the superior femoral head. Femoral neck is intact. No fractures are seen. Right-sided rami are intact. IMPRESSION: Severe right hip joint degenerative changes. No acute fracture is detected. Dictated by: Dictated on workstation # [id number]
== END ==
LOC: RAD 12:32
PROVIDERS: ATTEND Family Medicine
DX: M16.11 Unilateral primary osteoarthritis, right hip (principal); M79.604 Pain in right leg
CPT/HCPCS: 73502

== ENCOUNTER → 2019-11-13 | Outpatient (CLI) | payer OTHER ==
[~2019-11-13] VITALS: Ht 175 cm; Wt 66.0 kg
[~2019-11-13] MED LIST changes: +CATHETER FLUSH 10 ML SYR IV PRN; +REGADENOSON 0.4 MG/5 ML SYR (LEXISCAN) IV ONE
[2019-11-13 12:05] VITALS: BP 156/93
--- NOTE | 2019-11-13 19:56 | STRESS TEST ---
DATE OF SERVICE: 11/13/2019 RESTING AND POST REGADENOSON TECHNETIUM-99M TETROFOSMIN SPECT CT IMAGING ORDERING PHYSICIAN: Linda Barboza APRN PRIMARY PHYSICIAN: Jose M Perez DO. OTHER PHYSICIAN: Dr. Pompa. CLINICAL DIAGNOSIS: Coronary artery disease. Baseline images were carried out after injection of 10.27 mCi of technetium-99m Tetrofosmin for stress imaging. The electrocardiogram showed sinus rhythm at baseline. It did not change significantly with regadenoson infusion. The patient tolerated the procedure well. The patient received 0.4 mg regadenoson and 28.9 mCi of technetium-99m Tetrofosmin for stress imaging. Review of images at rest and following stress does not indicate any significant perfusion defects consistent with significant myocardial ischemia or infarction. Gated images show normal global left ventricular systolic function with normal regional wall motion. Left ventricular ejection fraction is calculated to be 61%. Left ventricular end diastolic volume is 55 mL. TID is absent (1.08). CONCLUSIONS: 1. No evidence of any significant myocardial ischemia or infarction on this study. 2. Normal regional wall motion. 3. Normal global left ventricular systolic function with a calculated ejection fraction of 61%. Job ID: [id number] DocumentID: [id number] Dictated Date: 11/13/2019 17:31:34 Completion Manager Date: 11/13/2019 19:55:31 Dictated By: EUSEBIO POMPA MD, MA, FACP, FACC,
== END ==
LOC: CARD 09:08
PROVIDERS: ATTEND Nurse Practitioner Family
DX: I25.10 Atherosclerotic heart disease of native coronary artery without angina pectoris (principal)
CPT/HCPCS: 78452; 93017

== ENCOUNTER 2023-09-11 16:27 | Emergency (ER) | payer OTHER ==
[~2023-09-11] VITALS: Ht 175 cm; Wt 66.0 kg
[~2023-09-11 16:27] MED LIST changes: +ASPI-1238 PO; -ASPI-983 PO; -CATHETER FLUSH 10 ML SYR IV PRN; -METO-387 PO; +MTP25TSR PO; -REGADENOSON 0.4 MG/5 ML SYR (LEXISCAN) IV ONE
[2023-09-11 16:52] LABS: BASOPHILS # (AUTO) 0.1 10^3/uL (0.0-0.1); BASOPHILS % (AUTO) 1 % (0-10); EOSINOPHILS # (AUTO) 0.4 10^3/uL (0.0-0.3); EOSINOPHILS % (AUTO) 5 % (0-10); HEMATOCRIT 42 % (40-54); HEMOGLOBIN 14.4 g/dL (13.3-17.7); LYMPHOCYTES # (AUTO) 1.3 10^3/uL (1.0-4.0); LYMPHOCYTES % (AUTO) 18 % (12-44); MEAN CORPUSCULAR HEMOGLOBIN 30 pg (25-34); MEAN CORPUSCULAR HGB CONC 34 g/dL (32-36); MEAN CORPUSCULAR VOLUME 90 fL (80-99); MEAN PLATELET VOLUME 10.4 fL (9.0-12.2); MONOCYTES # (AUTO) 0.8 10^3/uL (0.0-1.0); MONOCYTES % (AUTO) 10 % (0-12); NEUTROPHILS # (AUTO) 4.9 10^3/uL (1.8-7.8); NEUTROPHILS % (AUTO) 66 % (42-75); PLATELET COUNT 220 10^3/uL (130-400); WHITE BLOOD COUNT 7.5 10^3/uL (4.3-11.0)
--- NOTE | 2023-09-11 16:56 | ED Neurological Problem ---
General Chief Complaint: Cardiac/General Problems Stated Complaint: SENT FROM [facility] FOR BLOOD PRES Nursing Triage Note: PT SENT FROM [facility] FOR HYPERTENSION, SWOLLEN TONGUE SINCE 10:00 THIS A.M. TROUBLE BREATHING. STENT FROM AMI BUT DOES NOT TAKE MEDS Source: patient Exam Limitations: no limitations History of Present Illness Date Seen by Provider: Sep 11, 2023 Time Seen by Provider: 16:31 Initial Comments 62-year-old male presents to the ER after being sent from [facility] for elevated blood pressure and difficulty speaking. He states that at 10 AM he started having trouble talking, feels like his tongue is swollen. Denies difficulty swallowing. His visitor reports the left side of his face appears slightly swollen. He denies any dental pain. Denies any numbness or tingling in his arms, denies weakness on one side of his body. He denies headache, dizziness, chest pain, blurry vision. He reports shortness of air, states this is chronic. He denies any change to his shortness of air. He is a smoker. He has had a previous SC with stent placement. He is supposed to be on Plavix and aspirin, but does not take these. He does not take any PEEWEE inhibitors. He is a smoker. Allergies and Home Medications Allergies Coded Allergies: No Known Drug Allergies (Unverified , 03/18/17) Patient Home Medication List Home Medication List Reviewed: Yes Albuterol Sulfate (Ventolin Hfa) 1 Puff Puff, 2 PUFF INH Q4H Prescribed by: Mckenna Dent on 09/11/231816 Amoxicillin (Amoxicillin) 500 Mg Capsule, 500 MG PO TID Prescribed by: PAEG DAILEY on 04/03/17 1125 Amoxicillin/Potassium Clav (Amox Tr-K Clv 875-125 mg Tab) 875 Mg-125 Mg Tablet, 1 EACH PO BID Prescribed by: Mckenna Dent on 09/11/231814 Aspirin (Aspirin EC) 81 Mg Tablet.dr, 81 MG PO DAILY Prescribed by: APARNA LUCAS on 03/19/17 09 Aspirin (Aspirin) 81 Mg Tab.chew, 81 MG PO DAILY Prescribed by: Mckenna Dent on 09/11/231814 Atorvastatin Calcium (Lipitor) 40 Mg Tablet, 40 MG PO HS Prescribed by: APARNA LUCAS on 03/19/17 09 Clopidogrel Bisulfate (Clopidogrel) 75 Mg Tablet, 75 MG PO DAILY Prescribed by: APARNA LUCAS on 03/19/17 09 Clopidogrel Bisulfate (Plavix) 75 Mg Tablet, 75 MG PO DAILY Prescribed by: Mckenna Dent on 09/11/231814 Hydrocodone/Acetaminophen (Hydrocodone/Acetaminophen 5 MG/325 MG TAB) 1 Each Tablet, 1 EACH PO Q4H PRN for PAIN-MODERATE TO SEVERE Prescribed by: PAGE DAILEY on 04/03/17 112 Lisinopril (Lisinopril) 10 Mg Tablet, 10 MG PO DAILY Prescribed by: Mckenna Dent on 09/11/231814 Methylprednisolone (Methylprednisolone Dose Pack) 4 Mg Tab.ds.pk, 4 MG PO UD Prescribed by: Mckenna Dent on 09/11/231814 Metoprolol Succinate (Metoprolol Succinate) 25 Mg Tab.er.24h, 25 MG PO DAILY Prescribed by: APARNA LUCAS on 03/19/17900 Review of Systems Review of Systems Constitutional: see HPI Past Buokshx-Ghogdw-Rjwcqo Hx Patient Social History Tobacco Use?: Yes Tobacco type used: Cigarettes Smoking Status: Current Everyday Smoker Substance use?: No Alcohol Use?: No Immunizations Up To Date First/Initial COVID19 Vaccinat: NO Seasonal Allergies Seasonal Allergies: No Past Medical History Surgery/Hospitalization HX: AMI WITH STENTS AND DOES NOT TAKE RX'D MEDS Surgeries: Yes (VASECTOMY) Respiratory: No Cardiac: No Heart Attack, Hypertension Neurological: No Reproductive Disorders: No Genitourinary: No Gastrointestinal: No Musculoskeletal: Yes (CHRONIC RIGHT HIP PAIN) Endocrine: No HEENT: No Cancer: No Psychosocial: No Integumentary: No Physical Exam Vital Signs Vital Signs - First Documented 09/11/23 16:32 Temp 36.6 Pulse 93 Resp 18 B/P (MAP) 207/125 (152) Pulse Ox 97 O2 Delivery Room Air Capillary Refill : Less Than 3 Seconds Height, Weight, BMI Height: 5'9.00" Weight: 155lbs. 3.0oz. [id number]; 21.00 BMI Method:Stated General Appearance: WD/WN, no apparent distress HEENT: PERRL/EOMI Neck: supple, normal inspection Respiratory: no respiratory distress, no accessory muscle use, wheezing (Expiratory throughout) Cardiovascular: regular rate, rhythm Extremities: normal range of motion, normal inspection Neurologic/Psychiatric: rose grower II-XII nml as tested, no motor/sensory deficits, alert, normal mood/affect, oriented x 3 Crainal Nerves: normal hearing, PERRL, abnormal speech (Slightly slurred speech) Coordination/Gait: normal finger to nose Motor/Sensory: no motor deficit, no sensory deficit Skin: normal color, warm/dry Stroke NIH Stroke Scale Assessment Select: Initial Level of Consciousness: 0=Alert (0), Level of Consciousness- Questions: 0=Answers both month/age (0), LOC Commands: 0=Performs both tasks (0), Gaze: Normal (0), Visual Paul: 0=No visual loss (0), Facial Movement (Facial Paresis): 0=Normal symmetrical mnt (0), Motor Function-Arms Right: 0=No drift (0), Motor Function-Arms Left: 0=No drift (0), Motor Function-Legs Right: 0=No drift (0), Motor Function-Legs Left: 0=No drift (0), Limb Ataxia: 0=Absent (0), Sensory: 0=Normal:no loss (0), Best Language: 0=No aphasia (0), Dysarthria: 1=Mild to moderate loss (1), Extinction & Inattention: 0=No abnormality (0), Total: 1 Progress/Results/Core Measures Results/Orders Lab Results Laboratory Tests Test 09/11/23 16:40 09/11/23 16:43 Range/Units White Blood Count 7.5 4.3-11.0 10^3/uL Red Blood Count 4.74 4.30-5.52 10^6/uL Hemoglobin 14.4 13.3-17.7 g/dL Hematocrit 42 40-54 % Mean Corpuscular Volume 90 80-99 fL Mean Corpuscular Hemoglobin 30 25-34 pg Mean Corpuscular Hemoglobin Concent 34 32-36 g/dL Red Cell Distribution Width 12.5 10.0-14.5 % Platelet Count 220 130-400 10^3/uL Mean Platelet Volume 10.4 9.0-12.2 fL Immature Granulocyte % (Auto) 0 % Neutrophils (%) (Auto) 66 42-75 % Lymphocytes (%) (Auto) 18 12-44 % Monocytes (%) (Auto) 10 0-12 % Eosinophils (%) (Auto) 5 0-10 % Basophils (%) (Auto) 1 0-10 % Neutrophils # (Auto) 4.9 1.8-7.8 10^3/uL Lymphocytes # (Auto) 1.3 1.0-4.0 10^3/uL Monocytes # (Auto) 0.8 0.0-1.0 10^3/uL Eosinophils # (Auto) 0.4 H 0.0-0.3 10^3/uL Basophils # (Auto) 0.1 0.0-0.1 10^3/uL Immature Granulocyte # (Auto) 0.0 0.0-0.1 10^3/uL Prothrombin Time 12.6 12.2-14.7 SEC INR Comment 0.9 0.8-1.4 Activated Partial Thromboplast Time 28 24-35 SEC D-Dimer 0.76 H 0.00-0.49 UG/ML Sodium Level 139 135-145 MMOL/L Potassium Level 3.9 3.6-5.0 MMOL/L Chloride Level 106 98-107 MMOL/L Carbon Dioxide Level 22 21-32 MMOL/L Anion Gap 11 5-14 MMOL/L Blood Urea Nitrogen 15 7-18 MG/DL Creatinine 1.32 H 0.60-1.30 MG/DL Estimat Glomerular Filtration Rate 60 BUN/Creatinine Ratio 11 Glucose Level 95 70-105 MG/DL Calcium Level 9.4 8.5-10.1 MG/DL Corrected Calcium 9.3 8.5-10.1 MG/DL Total Bilirubin 0.3 0.1-1.0 MG/DL Aspartate Amino Transf (AST/SGOT) 15 5-34 U/L Alanine Aminotransferase (ALT/SGPT) 10 0-55 U/L Alkaline Phosphatase 65 40-136 U/L Troponin I < 0.028 <0.028 NG/ML Total Protein 8.0 6.4-8.2 GM/DL Albumin 4.1 3.2-4.5 GM/DL Glucometer 99 70-110 MG/DL My Orders Orders - MCKENNA SMITH [employer] BU[employer] Cbc And Automated Diff (09/11/23 16:44) Protime With Inr (09/11/23 16:44) Partial Thromboplastin Time (09/11/23 16:44) Comprehensive Metabolic Panel (09/11/23 16:44) Fibrin Degradation Products (09/11/23 16:44) Troponin I Ricki (09/11/23 16:44) Chest 1 View, Ap/Pa Only (09/11/23 16:44) Ekg Tracing (09/11/23 16:44) Accucheck Stat ONCE (09/11/23 16:44) Ed Iv/Invasive Line Start (09/11/23 16:44) Vital Signs Stroke Patient Q15M (09/11/23 16:44) Ct Head Wo-R/O Stroke (09/11/23 16:44) O2 (09/11/23 16:44) Monitor-Rhythm Ecg Trace Only (09/11/23 16:44) Dysphagia Screening Tool Q10MX1 (09/11/23 16:44) Post Thrombolytic Adminstratio (09/11/23 16:44) Labetalol Injection (Sdv) (Labetalol Inj (09/11/23 17:00) Ipratropium/Albuterol Inh Soln (Ipratrop (09/11/23 17:00) Methylprednisolone Sod Succ (Methylpredn (09/11/23 16:59) Svn Small Volume Nebulizer (09/11/23 16:59) Lisinopril Tablet (Lisinopril Tablet) (09/11/23 18:00) Lisinopril Tablet (Lisinopril Tablet) (09/11/23 18:01) Aspirin Chewable Tablet (Aspirin Chewabl (09/11/23 18:15) Clopidogrel Tablet (Clopidogrel Tablet) (09/11/23 18:15) Amoxicillin/Clavulanate Tablet (Amoxicil (09/11/23 18:15) Medications Given in ED Current Medications Medications Dose Ordered Sig/Ivana Route Start Time Stop Time Status Last Admin Dose Admin Albuterol/ Ipratropium 3 ml ONCE ONCE INH 09/11/23 17:00 09/11/23 17:01 DC 09/11/23 17:17 3 ML Amoxicillin/ Clavulanate Potassium 875 mg ONCE ONCE PO 09/11/23 18:15 09/11/23 18:16 DC 09/11/23 18:17 875 MG Aspirin 81 mg ONCE ONCE PO 09/11/23 18:15 09/11/23 18:16 DC 09/11/23 18:17 81 MG Clopidogrel Bisulfate 75 mg ONCE ONCE PO 09/11/23 18:15 09/11/23 18:16 DC 09/11/23 18:17 75 MG Labetalol HCl 10 mg ONCE ONCE IV 09/11/23 17:00 09/11/23 17:01 DC 09/11/23 16:54 10 MG Lisinopril 10 mg ONCE ONCE PO 09/11/23 18:00 09/11/23 18:01 DC 09/11/23 18:02 10 MG Vital Signs/I&O 09/11/23 09/11/23 16:32 18:28 Temp 36.6 36.6 Pulse 93 74 Resp 18 18 B/P (MAP) 207/125 (152) 170/103 Pulse Ox 97 97 O2 Delivery Room Air Room Air Blood Pressure Mean: 152 Progress Progress Note : Progress Note Patient seen and evaluated, resting comfortably in bed, no acute distress. Stroke work-up initiated including CBC, CMP, troponin, D-dimer, coags, EKG, Accu-Chek, chest x-ray, CT head stroke rule out. Below ordered for elevated blood pressure. DuoNeb ordered for expiratory wheezing. Does not appear swollen, but the right ordered to help with wheezing and possible swollen tongue. 1744 Labs and imaging reviewed. CBC grossly normal. CMP grossly normal. Creatinine slightly elevated 1.32, GFR decreased 68. Troponin negative. Coags normal. D-dimer 0.76. CT head shows no acute hemorrhage or mass effect. Extensive chronic ischemic changes in the deep white matter. Underlying sinus disease also noted. Chest x-ray shows no acute cardiac pulmonary process. Patient reevaluated. Patient reports that the tongue swelling feels better after the steroid. Lung sounds reassessed, lung sounds are clear after DuoNeb. I called and spoke with neurology, Dr. Karin Parson. She states that she is not concerned for stroke based on isolated slurred speech. She states this may be more likely related to patient's sinus infection due to mild left-sided facial swelling and reports of tongue swelling. She does not think that he needs to be admitted for further stroke work-up. Results and plan of care discussed with patient. Will discharge with prescription for antibiotic and Medrol Dosepak. Will also start him on lisinopril. I will also restart his Plavix and aspirin. And I will discharge with a prescription for an albuterol inhaler. Patient instructed to follow-up with his primary care provider and with Dr. Pompa, his settlement worker. Discharge instructions and return precautions provided. Initial ECG Impression Date: Sep 11, 2023 Initial ECG Impression Time: 16:53 Initial ECG Rate: 78 Initial ECG Rhythm: Normal Sinus Initial ECG Intervals: Normal Initial ECG Impression: Nonspecific Changes Initial ECG Comparisson: Unchanged Diagnostic Imaging Diagonstic Imaging: CT Plain Films/CT/US/NM/MRI: head Comments [facility], [place], [place] NAME: JUAN FALCON [facility] REC#: [id number] PT STATUS: REG ER : 1960 PHYSICIAN: MCKENNA SMITH APRN ADMIT DATE: 09/11/23/ER Draft Date of Exam:09/11/23 CT HEAD WO-R/O STROKE Indication: Hypertension and difficulty breathing and slurred speech. TECHNIQUE: Multiple contiguous axial images were obtained through the brain without the use of intravenous contrast. Auto Exposure Controls were utilized during the CT exam to meet ALARA standards for radiation dose reduction. There is no prior study for comparison There are no extra-axial fluid collections. No intracranial hemorrhage. No intracranial mass or mass effect. There are extensive low-density changes throughout the deep white matter compatible with chronic ischemic change. There is no overt acute territorial ischemia. Orbital contents are unremarkable. Calvarial windows appear normal. There are underlying areas of mucosal thickening in the sphenoid sinuses and ethmoid air cells and left maxillary sinus. IMPRESSION: No acute hemorrhage or mass effect. Extensive chronic ischemic changes in the deep white matter. Underlying sinus disease as above. Dictated on workstation # [id number] Dict: 09/11/23 1712 Trans: 09/11/23 1724 [facility] [id number] Interpreted by: JUAN VILLASENOR MD Electronically signed by: Diagonstic Imaging: Xray Plain Films/CT/US/NM/MRI: chest Comments [facility], [facility]. [place], [place] NAME: TERRIEJUAN [facility] REC#: [id number] PT STATUS: REG ER : 1960 PHYSICIAN: MCKENNA SMITH APRN ADMIT DATE: 09/11/23/ER Draft Date of Exam:09/11/23 CHEST 1 VIEW, AP/PA ONLY Indication: Hypertension and tongue swelling and speech difficulty Frontal chest dated 0453 p.m. Compared to 03/19/2017 Heart and mediastinal silhouette are normal appearance the lungs are clear. There is no pneumothorax or pleural fluid. IMPRESSION: No acute process in the chest. Dictated on workstation # [id number] Dict: 09/11/23 1719 Trans: 09/11/23 1731 [facility] [id number] Interpreted by: JUAN VILLASENOR MD Electronically signed by: Departure Impression Primary Impression: Slurred speech Additional Impressions: Hypertension Sinus infection Disposition: 01 HOME, SELF-CARE Condition: Stable Departure-Patient Inst. Decision time for Depature: 18:10 Referrals: MARCELLA MERINO DO (PCP/Family) Primary Care Physician Patient Instructions: High blood pressure in adults Add. Discharge Instructions: Complete full course of amoxicillin/clavulanate as prescribed. Complete full course of Medrol Dosepak as prescribed. Take lisinopril once a day. If you develop severe tongue or lip swelling, you need to seek emergency treatment. If you develop a dry cough, follow-up with your primary care provider. Take Plavix and aspirin once a day. Follow-up with your primary care provider, call him on Wednesday to schedule follow-up appointment. He will need to refill your lisinopril, Plavix, and aspirin. Follow-up with Dr. Pompa. You need to quit smoking. You likely have COPD from your smoking. Your primary care provider will need to order testing for this to evaluate for COPD. Use the albuterol inhaler as needed for shortness of air. Return for one-sided weakness, facial drooping, headache, or any other new, concerning, or worsening symptoms. All discharge instructions reviewed with patient and/or family. Voiced understanding. Scripts Albuterol Sulfate (VENTOLIN HFA) 1 Puff Puff 2 PUFF INH Q4H, #1 EA 0 Refills 1 PUFF = 90 MCG Prov: MCKENNA SMITH APRN 09/11/23 Lisinopril (Lisinopril) 10 Mg Tablet 10 MG PO DAILY for 30 Days, #30 TAB 0 Refills Prov: MCKENNA SMITH APRN 09/11/23 Methylprednisolone (Methylprednisolone Dose Pack) 4 Mg Tab.ds.pk 4 MG PO UD for 6 Days, #21 PKG 0 Refills PER DOSE PACK INSTRUCTIONS Prov: MCKENNA SMITH APRN 09/11/23 Aspirin (Aspirin) 81 Mg Tab.chew 81 MG PO DAILY for 30 Days, #30 TAB 0 Refills Prov: MCKENNA SMITH APRN 09/11/23 Clopidogrel Bisulfate (Plavix) 75 Mg Tablet 75 MG PO DAILY for 30 Days, #30 TAB 0 Refills Prov: MCKENNA SMITH APRN 09/11/23 Amoxicillin/Potassium Clav (Amox Tr-K Clv 875-125 mg Tab) 875 Mg-125 Mg Tablet 1 EACH PO BID for 7 Days, #13 TAB 0 Refills Prov: MCKENNA SMITH APRN 09/11/23 MCKENNA SMITH APRN Sep 11, 2023 16:56
[2023-09-11] MEDS ORDERED: methylPREDNISolone INJ 125 MG VIAL IV STA (16:59)
[2023-09-11] MEDS ORDERED: LABETALOL 5 mg/ml 4 ML SINGLE DOSE SYRINGE IV ONE (17:00)
[2023-09-11] MEDS ORDERED: RT-Ipratropium/Albuterol NEB 3 ML VIAL INH ONE (17:00)
[2023-09-11 17:02] LABS: ALBUMIN 4.1 GM/DL (3.2-4.5); CHLORIDE 106 MMOL/L (98-107); INR 0.9 (0.8-1.4); POTASSIUM 3.9 MMOL/L (3.6-5.0); PROTHROMBIN TIME PATIENT 12.6 SEC (12.2-14.7); SODIUM 139 MMOL/L (135-145)
[2023-09-11 17:03] LABS: CALCIUM 9.4 MG/DL (8.5-10.1)
[2023-09-11 17:04] LABS: GLUCOSE 95 MG/DL (70-105)
[2023-09-11 17:05] LABS: CARBON DIOXIDE 22 MMOL/L (21-32); FIBRIN DEGRADATION PRODUCTS 0.76 UG/ML (0.00-0.49)
[2023-09-11 17:08] LABS: ALKALINE PHOSPHATASE 65 U/L (40-136); CREATININE SERUM 1.32 MG/DL (0.60-1.30); GFR ESTIMATED 60
[2023-09-11 17:09] LABS: BUN/CREATININE RATIO 11
[2023-09-11 17:11] LABS: ALANINE AMINOTRANSFERASE 10 U/L (0-55)
--- NOTE | 2023-09-11 17:25 | Diagnostic Imaging Report ---
Indication: Hypertension and difficulty breathing and slurred speech. TECHNIQUE: Multiple contiguous axial images were obtained through the brain without the use of intravenous contrast. Auto Exposure Controls were utilized during the CT exam to meet ALARA standards for radiation dose reduction. There is no prior study for comparison There are no extra-axial fluid collections. No intracranial hemorrhage. No intracranial mass or mass effect. There are extensive low-density changes throughout the deep white matter compatible with chronic ischemic change. There is no overt acute territorial ischemia. Orbital contents are unremarkable. Calvarial windows appear normal. There are underlying areas of mucosal thickening in the sphenoid sinuses and ethmoid air cells and left maxillary sinus. IMPRESSION: No acute hemorrhage or mass effect. Extensive chronic ischemic changes in the deep white matter. Underlying sinus disease as above. Dictated by: Dictated on workstation # [id number]
--- NOTE | 2023-09-11 17:32 | Diagnostic Imaging Report ---
Indication: Hypertension and tongue swelling and speech difficulty Frontal chest dated 0453 p.m. Compared to 03/19/2017 Heart and mediastinal silhouette are normal appearance the lungs are clear. There is no pneumothorax or pleural fluid. IMPRESSION: No acute process in the chest. Dictated by: Dictated on workstation # [id number]
[2023-09-11 17:38] LABS: BILIRUBIN,TOTAL 0.3 MG/DL (0.1-1.0)
[2023-09-11] MEDS ORDERED: AMOX1TAB12 PO (18:15)
[2023-09-11] MEDS ORDERED: METH4TAB10 PO (18:15)
[2023-09-11] MEDS ORDERED: AMOXICILLIN/Clavulanate 875 MG TABLET PO ONE (18:15)
[2023-09-11] MEDS ORDERED: CLOPIDOGREL 75 MG TABLET PO ONE (18:15)
[2023-09-11] MEDS ORDERED: CLOP-31 PO (18:15)
[2023-09-11] MEDS ORDERED: ASPI-999 PO (18:15)
[2023-09-11] MEDS ORDERED: LISI10TA25 PO (18:15)
[2023-09-11] MEDS ORDERED: ASPIRIN 81 MG CHEWABLE TABLET PO ONE (18:15)
[2023-09-11] MEDS ORDERED: RT-ALBUINH INH (18:17)
[2023-09-11 18:28] VITALS: BP 170/103
== END 2023-09-11 18:28 | disposition home or self-care (01) ==
LOC: EDUNIT# 16:27 → ER 16:29
DX: I10 Essential (primary) hypertension (principal); R47.81 Slurred speech; J32.9 Chronic sinusitis, unspecified; R94.4 Abnormal results of kidney function studies; F17.210 Nicotine dependence, cigarettes, uncomplicated
CPT/HCPCS: 36415; 70450; 71045; 80053; 82947; 84484; 85025; 85379; 85610; 85730; 93041

== ENCOUNTER → 2023-11-03 | Outpatient (CLI) | payer MEDICARE, OTHER ==
[~2023-11-03] MED LIST changes: +AMOX1TAB12 PO; +ASPI-999 PO; +CLOP-31 PO; +LISI10TA25 PO; +METH4TAB10 PO; +RT-ALBUINH INH
[2023-11-03 10:45] LABS: HEMATOCRIT 43 % (40-54); HEMOGLOBIN 14.5 g/dL (13.3-17.7); MEAN CORPUSCULAR HEMOGLOBIN 30 pg (25-34); MEAN CORPUSCULAR HGB CONC 34 g/dL (32-36); MEAN CORPUSCULAR VOLUME 88 fL (80-99); MEAN PLATELET VOLUME 10.2 fL (9.0-12.2); PLATELET COUNT 247 10^3/uL (130-400); WHITE BLOOD COUNT 8.1 10^3/uL (4.3-11.0)
[2023-11-03 11:00] LABS: ALBUMIN 4.1 GM/DL (3.2-4.5)
[2023-11-03 11:01] LABS: CALCIUM 9.6 MG/DL (8.5-10.1)
[2023-11-03 11:04] LABS: BILIRUBIN,TOTAL 0.9 MG/DL (0.1-1.0)
[2023-11-03 11:05] LABS: CREATININE SERUM 1.18 MG/DL (0.60-1.30)
== END ==
LOC: LAB 09:55
PROVIDERS: ATTEND Family Medicine
DX: I10 Essential (primary) hypertension (principal)
CPT/HCPCS: 36415; 80053; 80061; 84153; 85027